=== PATIENT | female | born 1965 | race Caucasian/White ===

== ENCOUNTER 2017-08-27 18:54 | Emergency (ER) | payer OTHER ==
[~2017-08-27] VITALS: Ht 157.5 cm; Wt 85.3 kg
--- NOTE | 2017-08-27 19:14 | NUR ---
MD FRAUSTO AT BEDSIDE
--- NOTE | 2017-08-27 19:15 | NUR ---
ASSUMED CARE: PT CAME FROM HOME C/O L SIDE NECK PAIN RADIATING DOWN TO SHOULDER/CHEST, BREATHING EVEN/UNLABORED, SUPERINTENDENT SEED MILL IN PLACE NSR, PER PT "I HAVE HAD THIS PAIN FOR ABOUT A WEEK OR SO, SOMETIMES I FEEL LIKE MY HEAR SPEEDS UP" SKIN WARM/DRY/INTACT, FAMILY IS BEDSIDE
[2017-08-27 19:27] LABS: BASOPHILS % (AUTO) 0.2 % (0.0-2.0); EOSINOPHILS # (AUTO) 0.2 /CMM (0.0-0.7); HEMATOCRIT 39 % (33-45); HEMOGLOBIN 13.1 g/dL (11.5-14.8); LYMPHOCYTES # (AUTO) 2.5 /CMM (0.8-4.8); LYMPHOCYTES % (AUTO) 38.9 % (20.0-44.0); MEAN CORPUSCULAR HEMOGLOBIN 29 PG (26.0-33.0); MEAN CORPUSCULAR HGB CONC 34 g/dl (31.0-36.0); MEAN CORPUSCULAR VOLUME 86 fL (82-100); MONOCYTES # (AUTO) 0.6 /CMM (0.1-1.30); MONOCYTES % (AUTO) 8.5 % (2.0-12.0); NEUTROPHILS # (AUTO) 3.2 /CMM (1.8-8.9); NEUTROPHILS % (AUTO) 49.4 % (43.0-81.0); PLATELET COUNT (AUTO) 265 /CMM (150-450); RDW COEFFICIENT OF VARIATION 12.2 (11.5-15.0); RED BLOOD CELL COUNT(AUTO) 4.53 MIL/uL (4.0-5.2); WHITE BLOOD COUNT (AUTO) 6.5 K/uL (4.3-11.0)
[2017-08-27] MEDS ORDERED: ASPIRIN 325 MG TABLET PO ONE (19:30)
[2017-08-27 19:40] LABS: CALCIUM, SERUM 8.9 mg/dL (8.5-10.1); CARBON DIOXIDE 31 mmol/L (21-32); CHLORIDE 105 mmol/L (98-107); CREATININE 0.7 mg/dL (0.6-1.3); GLUCOSE 149 mg/dL (74-106); POTASSIUM 3.7 mmol/L (3.5-5.1); SODIUM SERUM 140 mmol/L (136-145); UREA NITROGEN, BLOOD 14 mg/dL (7-18)
[2017-08-27 19:45] LABS: INR 0.89 (0.87-1.13); PROTHROMBIN TIME 9.3 SECS (9.5-12.7)
[2017-08-27] MEDS ORDERED: ASPIRIN 325 MG TABLET ONE (19:46)
[2017-08-27 19:48] LABS: TROPONIN I < 0.017 ng/mL (0.00-0.056)
[2017-08-27 20:17] VITALS: BP 128/84
== END 2017-08-27 20:18 | disposition home or self-care (01) ==
LOC: ER 18:57
DX: R00.2 Palpitations (principal); R79.1 Abnormal coagulation profile; Z90.89 Acquired absence of other organs
CPT/HCPCS: 36415; 71010; 80048; 84484; 85025; 85730; 93005; 99285; A4606; Z7610

== ENCOUNTER 2021-05-23 21:05 | Emergency (ER) | payer OTHER ==
[~2021-05-23] VITALS: Ht 157.5 cm; Wt 81.6 kg
--- NOTE | 2021-05-23 21:10 | NUR ---
PT AAOX4. BIBSELF C/O CP L SIDED CP RADIATING TO LT SIDE NECK X2DAYS, 5/10 PAIN. 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 NO ACUTE DISTRESS NOTED. VSS. ER MD AT BEDSIDE FOR EVAL.
[2021-05-23] MEDS ORDERED: ASPIRIN 81 MG TAB.CHEW ONE (21:21)
[2021-05-23] MEDS ORDERED: ASPIRIN 81 MG TAB.CHEW PO ONE (21:30)
[2021-05-23 21:41] LABS: BASOPHILS % (AUTO) 0.6 % (0.0-2.0); EOSINOPHILS % (AUTO) 2.3 % (0.0-6.0); HEMATOCRIT 39 % (33-45); HEMOGLOBIN 13.3 g/dL (11.5-14.8); LYMPHOCYTES # (AUTO) 2.8 K/uL (0.8-4.8); LYMPHOCYTES % (AUTO) 46.4 % (20.0-44.0); MEAN CORPUSCULAR HGB CONC 34 g/dl (31.0-36.0); MEAN CORPUSCULAR VOLUME 89 fL (82-100); MONOCYTES # (AUTO) 0.5 K/uL (0.1-1.30); MONOCYTES % (AUTO) 7.9 % (2.0-12.0); NEUTROPHILS # (AUTO) 2.6 K/uL (1.8-8.9); NEUTROPHILS % (AUTO) 42.8 % (43.0-81.0); PLATELET COUNT (AUTO) 222 K/uL (150-450)
[2021-05-23 21:57] LABS: CALCIUM, SERUM 8.7 mg/dL (8.5-10.1); CARBON DIOXIDE 27 mmol/L (21-32); CHLORIDE 108 mmol/L (98-107); CREATININE 0.8 mg/dL (0.6-1.3); GLUCOSE 111 mg/dL (74-106); POTASSIUM 3.7 mmol/L (3.5-5.1); SODIUM SERUM 145 mmol/L (136-145); UREA NITROGEN, BLOOD 26 mg/dL (7-18)
[2021-05-23 22:03] LABS: ALANINE AMINOTRANSFERASE 23 U/L (12-78); ALBUMIN 3.8 g/dL (3.4-5.0); ALKALINE PHOSPHATASE 112 U/L (46-116); ASPARTATE AMINOTRANSFERASE 13 U/L (15-37); BILIRUBIN,DIRECT 0.2 mg/dL (0.0-0.2); BILIRUBIN,TOTAL 0.6 mg/dL (0.2-1.0); TOTAL PROTEIN, SERUM 6.6 g/dL (6.4-8.2)
[2021-05-23 22:57] VITALS: BP 132/75
--- NOTE | 2021-05-23 22:57 | NUR ---
IV removed. Catheter intact and site benign. Pressure and 4x4 applied to site. No bleeding noted.
--- NOTE | 2021-05-23 22:57 | NUR ---
Patient discharged to home in stable condition. Written and verbal after care instructions given. Patient verbalizes understanding of instruction. Pt ambulated out of ED. VSS.
== END 2021-05-23 23:03 | disposition home or self-care (01) ==
LOC: ER 21:08
DX: R07.9 Chest pain, unspecified (principal); F43.9 Reaction to severe stress, unspecified; Z20.822 Contact with and (suspected) exposure to COVID-19
CPT/HCPCS: 36415; 71045; 80048; 80076; 83880; 84484; 85025; 87426; 93005; 99285; C9803